=== PATIENT | female | born 1960 | race African-American/Black ===

== ENCOUNTER 2017-10-16 05:49 | Day surgery (SDC) | payer MEDICAID ==
[2017-10-14 10:17] LABS: HEMATOCRIT 41.3 % (36.0-48.0); HEMOGLOBIN 13.4 g/dL (12-16); MCH 27.9 pg (26.0-34.0); MCHC 32.4 g/dL (31.0-37.0); MEAN PLATELET VOLUME 9.4 fL (7.4-10.4); PLATELET COUNT 248 10x3/uL (130-400); WBC 3.3 10x3/uL (4.8-10.8)
[2017-10-14 11:42] LABS: EOSINOPHILS 1 % (0-7); LYMPHOCYTES 52 % (15-50); MONOCYTES 10 % (2-11); NEUTROPHILS 33 % (40-80); PLATELET ESTIMATE NORMAL
[~2017-10-16] VITALS: Ht 154.9 cm; Wt 59.0 kg
[~2017-10-16 05:49] MED LIST: MULTI-DAY VITAM1 TAB PO
[2017-10-16 08:02] VITALS: BP 143/81; Ht 154.9 cm; Wt 59.0 kg
--- NOTE | 2017-10-16 11:04 | NUR ---
1100--PT VOIDS WITHOUT DIFFICULTY, IV [place]'Rafiq NIETO RN
--- NOTE | 2017-10-16 11:15 | NUR ---
1115--DISCHARGE INSTRUCTIONS GIVEN, PT VERBALIZES UNDERSTANDING. PT OFF UNIT VIA ASHLEY. EMILIA VERAS
--- NOTE | 2017-10-16 16:41 | OP ---
PATIENT NAME: LUCILLE EMERSON MEDICAL RECORD: [id number] LOCATION:[facility] ADMISSION DATE: SURGEON: CHELLE MCKENZIE MD DATE OF OPERATION: 10/16/2017 PREOPERATIVE DIAGNOSES: 1. Fibroids. 2. Postmenopausal bleeding. 3. Fluid collection on ultrasound. POSTOPERATIVE DIAGNOSES: 1. Fibroids. 2. Postmenopausal bleeding. 3. Fluid collection on ultrasound. PROCEDURE: Preoperative ultrasound followed by hysteroscopy, dilation and curettage. COMPLICATIONS: None apparent. ESTIMATED BLOOD LOSS: Minimal. INTRAVENOUS FLUIDS: Per anesthesia records. HYSTEROSCOPIC FLUID LOSS: Approximately 50 cc of 0.9 normal saline. COMPLICATIONS: None apparent. SPECIMENS: Endometrial curettings. FINDINGS: Preoperatively, ultrasound was performed at the bedside to reevaluate left adnexal fluid collection seen in the ultrasound earlier this week. No ovarian cysts were noted. The patient, as she turned to the right, a small amount of dependent fluid was noted to move out of the left adnexa confirming no significant ovarian cyst. At this point, decision was made not to proceed with laparoscopy. DESCRIPTION OF PROCEDURE: The patient was then taken to the operating room where general anesthesia was achieved without difficulty. The patient was then prepped and draped in normal sterile fashion in the dorsal lithotomy position in the [facility]. At this point, the bladder was drained of approximately 100 cc of clear urine. A Graves speculum was placed into the vagina and the cervix was identified and found to be extremely retroflexed and superior. It was grasped at the os by an Allis clamp and brought down to the field. The anterior lip was then grasped with a single tooth tenaculum. The Allis was removed. Uterine sounding was performed to approximately 10 cm. At this point, anteversion of the uterus was noted. Gentle dilation was performed at approximately 7 mm at which point, the hysteroscope was placed into the uterine cavity. Enlarged cavity was noted with atrophic appearing endometrium. No significant pathology, hypervascularity, or polyps were noted. The hysteroscope was then removed and a #1 curette was then used to sample all 4 quadrants with minimal return of tissue due to the patient's atrophic menopausal status. The tenaculum was removed with good hemostasis noted. The Graves speculum was then removed. The patient tolerated the procedure well, transferred to postanesthesia recovery stable without incident. OPERATIVE REPORT [id number] LUCILLE EMERSON TRANSINT:[id number] Voice Confirmation ID: [id number] DOCUMENT ID: [id number] CHELLE MCKENZIE MD at 1641 CC: [id number] DICTATION DATE: 10/16/17914 INSTRUMENT MAKER AND REPAIRER: 10/16/17 1043 [facility] 10/16/17 [facility] [address] [id number]
== END 2017-10-16 11:15 | disposition home or self-care (01) ==
LOC: D.OPS 05:49 → D.PAN 07:30 → D.OPS 08:25
PROVIDERS: Obstetrics & Gynecology
DX: D25.9 Leiomyoma of uterus, unspecified (principal); N95.0 Postmenopausal bleeding; Z95.0 Presence of cardiac pacemaker; K21.9 Gastro-esophageal reflux disease without esophagitis; Z88.8 Allergy status to other drugs, medicaments and biological substances; Z91.041 Radiographic dye allergy status; Z91.040 Latex allergy status; Z01.812 Encounter for preprocedural laboratory examination